=== PATIENT | female | born 1985 | race Caucasian/White ===

== ENCOUNTER 2019-05-09 12:05 | Emergency (ER) | payer MEDICAID ==
[~2019-05-09] VITALS: Ht 157.5 cm; Wt 81.6 kg
--- NOTE | 2019-05-09 12:12 | NUR ---
Patient ambulated to bed 8 with family. RN evaluating patient at bedside.
[2019-05-09 12:16] VITALS: BP 132/74
--- NOTE | 2019-05-09 12:16 | NUR ---
33 Y/O F C/O N/V/D X3 DAYS. PT HAS TAKEN OVER THE COUNTER MEDICATION AT HOME FOR PAIN RELIEF. ABDOMEN IS SOFT, NOT DISTENDED. PT CHANGED INTO GOWN, BED LOWERED, SIDE RAIL X1 IN PLACE. AT BEDSIDE. NKA MEDHX: NONE
--- NOTE | 2019-05-09 12:30 | NUR ---
Dr. Teixeira is evaluating the patient at bedside.
[2019-05-09] MEDS ORDERED: NACL 0.9% 1,000 ML IV SCH (12:39)
[2019-05-09] MEDS ORDERED: NACL 0.9% 1,000 ML IV ONE (12:39)
[2019-05-09] MEDS ORDERED: metroNIDAZOLE 500 MG/NS PREMIX 100 ML IV ONE (12:40)
[2019-05-09] MEDS ORDERED: ONDANSETRON 4 MG/2 ML VIAL IVP ONE ×2 (12:40→15:00)
[2019-05-09] MEDS ORDERED: MORPHINE SULFATE 2 MG/ML SYR IVP ONE (12:40)
[2019-05-09] MEDS ORDERED: GLYCOPYRROLATE 0.2 MG/ML VIAL IV ONE (12:40)
--- NOTE | 2019-05-09 13:13 | NUR ---
PT TAKEN TO CT BY WHEELCHAIR.
--- NOTE | 2019-05-09 13:20 | NUR ---
Patient returned from CT scan. RN re-evaluating the patient at bedside.
[2019-05-09 13:23] LABS: APPEARANCE,URINE CLOUDY (CLEAR); BILIRUBIN,URINE 1+ (NEGATIVE); BLOOD, URINE 3+ (NEGATIVE); COLOR,URINE YELLOW (YELLOW); LEUKOCYTE ESTERASE ,URINE TRACE (NEGATIVE); NITRITE, URINE NEGATIVE (NEGATIVE); UGLUCOSE NEGATIVE (NEGATIVE)
[2019-05-09 13:32] LABS: RBC,URINE 20-50 /HPF (0-5); WBC,URINE 0-5 /HPF (0-5)
[2019-05-09 13:43] LABS: HEMOGLOBIN 13.1 g/dL (12.0-16.0); MEAN CORPUSCULAR HEMOGLOBIN 29 pg (27-31); MEAN CORPUSCULAR HGB CONC 33 g/dL (33-37); MEAN CORPUSCULAR VOLUME 89.2 fL (80-94); PLATELET COUNT (AUTO) 213 K/uL (140-450); RED BLOOD CELL COUNT(AUTO) 4.48 MIL/uL (4.20-5.40); RED CELL DISTRIBUTION WIDTH 13.8 % (11.6-13.7); WHITE BLOOD COUNT (AUTO) 11.7 K/uL (4.8-10.8)
[2019-05-09 13:59] LABS: PROTHROMBIN TIME 9.9 secs (10.8-13.4)
[2019-05-09 14:00] LABS: BASOPHILS % (MANUAL) 0 % (0-2); EOSINOPHILS % (MANUAL) 0 % (0-4); LYMPHOCYTES % (MANUAL) 9 % (20-46); MONOCYTES % (MANUAL) 6 % (5-12)
[2019-05-09 14:00] LABS: BARBITURATE, URINE NEG. ng/ml (NEG <=200); BENZODIAZEPINE, URINE NEG. ng/mL (NEG <=200); CANNABINOID, URINE NEG. ng/mL (NEG <=50); COCAINE, URINE NEG. ng/mL (NEG <=300); OPIATE, URINE NEG. ng/mL (NEG <=2000); PHENCYCLIDINE SCREEN,URINE NEG. ng/mL (NEG <=25)
[2019-05-09 14:01] LABS: ANION GAP 15.7 (8-16); CARBON DIOXIDE 26.3 mmol/L (21-32); CREATININE 0.8 mg/dL (0.6-1.3)
[2019-05-09 14:13] LABS: TOTAL BILIRUBIN 0.6 mg/dL (0.0-1.0)
--- NOTE | 2019-05-09 14:40 | NUR ---
PT STATED PAIN IS BETTER 5/10. IV SITE IS CLEAN/DRY AND NACL RUNNING WITHOUT ADVERSE AFFECT. GAVE PT WATER, OK PER MD. AT BEDSIDE.
[2019-05-09] MEDS ORDERED: MORPHINE SULFATE 4 MG/ML SYR IVP ONE (15:00)
[2019-05-09 15:16] VITALS: BP 130/76
--- NOTE | 2019-05-09 15:16 | NUR ---
Patient discharged with v/s stable. Written and verbal after care instructions given and explained. Patient alert, oriented and verbalized understanding of instructions. Ambulatory with steady gait. All questions addressed prior to discharge. ID band removed. Patient advised to follow up with PMD. Rx of MOTRIN, FLAGYL given. Patient educated on indication of medication including possible reaction and side effects. Opportunity to ask questions provided and answered.
--- NOTE | 2019-05-20 16:53 | NUR ---
Late entry. Confirmed with RN that 0.9 NS IV completed at 1413
== END 2019-05-09 15:16 | disposition home or self-care (01) ==
LOC: MED 12:05
DX: R10.30 Lower abdominal pain, unspecified (principal); R19.7 Diarrhea, unspecified
CPT/HCPCS: 36415; 74176; 80053; 80305; 81001; 81025; 82150; 82977; 83690; 85025; 85610; 96361; 96365; 96375; 96376; 99284; J2270; J2405; J3490